=== PATIENT | male | born 2000 | race Caucasian/White ===

== ENCOUNTER 2021-01-04 18:46 | Inpatient (IN) ==
[2021-01-04] MEDS ORDERED: ACETAMINOPHEN 325 MG TAB PO STA (19:09)
[2021-01-04] MEDS ORDERED: IBUPROFEN 600 MG TAB PO STA (19:09)
--- NOTE | 2021-01-04 19:14 | Emergency Department Note ---
History of Present Illness General Chief complaint: Flu Like Symptoms Stated complaint: COUGH, DIARRHEA, FATIGUE, CONGESTION, PISANO,FEVER,SOB Time Seen by Provider: 01/04/21 18:58 Source: patient History of Present Illness Provider complaint: Flulike symptoms Onset (ago): day(s) 9 Location: head and chest Severity: moderate Pain Consistency: + constant Quality: + other (Cough and fever) Relieved By: + none Associated symptoms: + cough, + fever/chills, + headaches (Very mild headache), + malaise, + nausea/vomiting (Nausea no vomiting), + shortness of breath (2 days ago but now resolved) and + other (Lightheadedness when he stands); no chest pain This is a 20-year-old male who presents with flulike symptoms starting 9 days ago. His roommate did test positive for COVID-19. The patient has a nonproductive cough, loss of taste or smell and fever for the past 9 days. His sense of taste seems to be coming back. He stated he was short of breath for about 2 days but today he is no longer short of breath. He denies any chest discomfort. He is nauseated but not vomiting. He has had some diarrhea but that stopped 2 days ago. He denies abdominal pain. He does state that when he gets up he feels lightheaded. He feels dehydrated and feels like his lips are chapped. He has a headache which he describes as "small". He has not had his flu shot this year. He has not taken any antipyretics today. Home Medications Medication Instructions Recorded Confirmed Type acetaminophen 500 mg PO Q6H PRN 01/04/21 01/04/21 History Allergies Allergy/AdvReac Type Severity Reaction Status Date / Time No Known Allergies Allergy Verified 01/04/21 19:39 Past Med/Surg History Medical History No pertinent past medical history Social History Smoking Status: Never smoker Preferred Language: Ukrainian Feels Safe at Home: Yes Review of Systems See HPI for pertinent positives & negatives. and A total of 10 systems reviewed and were otherwise negative Physical Exam Vital Signs Vital Signs - 24 hr 01/04/21 18:54 01/04/21 19:18 01/04/21 19:30 Temperature 39.3 C H Temperature Source Temporal Artery Scan Pulse Rate 120 H 117 H 108 H Pulse Rate from SpO2 Sensor 117 H 110 H Respiratory Rate 20 20 22 Respiratory Depth Normal Blood Pressure 118/63 154/65 H 146/64 H Blood Pressure Mean 81 94 91 Pulse Oximetry 91 90 92 Oxygen Delivery Method Room Air Room Air Room Air Sepsis Recent Fever Within 48 Hours Yes Sepsis New/Unexplained Change in Mental Status N/A Sepsis Action Taken by Nursing No Action Required 01/04/21 20:00 01/04/21 20:05 01/04/21 20:46 Temperature 39.2 C H Temperature Source Oral Pulse Rate 106 H 101 H Pulse Rate from SpO2 Sensor 106 H 101 H Respiratory Rate 14 19 Respiratory Depth Blood Pressure 144/55 H 142/63 H Blood Pressure Mean 84 89 Pulse Oximetry 93 94 Oxygen Delivery Method Room Air Room Air Sepsis Recent Fever Within 48 Hours Sepsis New/Unexplained Change in Mental Status Sepsis Action Taken by Nursing Constitutional: Vital signs reviewed. Febrile. Pale. Eyes: Pupils are equal round reactive to light. Conjunctiva are noninjected. ENT: Pharynx is clear without erythema or exudate. Mucous membranes are moist. Neck supple without meningeal signs. Respiratory: Clear to auscultation bilaterally. Breath sounds are equal bilaterally. Cardiovascular: Tachycardic. Regular rhythm. GI: Soft, nondistended and nontender. Bowel sounds are present. Musculoskeletal: No peripheral edema. No lower extremity tenderness. Integumentary: No cyanosis. or jaundice. Neurological: The patient is awake and alert. No focal deficits. Psychiatric: Normal affect. Not anxious appearing. Course Administered Medications Discontinued Medications Acetaminophen (Acetaminophen 325 Mg Tab) 650 mg PO ONE STA Stop: 01/04/21 19:10 Last Admin: 01/04/21 19:18 Dose: 650 mg Documented by: [id number] Sodium Chloride (Nss 1000ml) 1,000 mls @ 999 mls/hr IV .Q1H1M [place] Stop: 01/04/21 20:15 Last Infusion: 01/04/21 20:24 Dose: 0 mls/hr Documented by: [id number] Admin: 01/04/21 19:18 Dose: 999 mls/hr Documented by: [id number] Piperacillin Sod/Tazobactam Sod (Zosyn) 4.5 gm in 120 mls @ 240 mls/hr IV NOW ONE Stop: 01/04/21 20:38 Last Infusion: 01/04/21 21:22 Dose: 0 mls/hr Documented by: [id number] Admin: 01/04/21 20:44 Dose: 240 mls/hr Documented by: [id number] Ibuprofen (Ibuprofen 600 Mg Tab) 600 mg PO ONE STA Stop: 01/04/21 19:10 Last Admin: 01/04/21 19:18 Dose: 600 mg Documented by: [id number] Critical Care Time Critical Care Time: Yes Total Critical Care Time: 35 I have personally spent approximately 35 minutes of critical care time in the direct management of this patient. This includes bedside care, interpretation of diagnostic studies, and testing, discussion with consultants, patient, and family members, and other required patient management activities. These minutes are in excess of all separately billable procedures. Medical Decision Making Differential Diagnosis COVID-19, pneumonia, bronchitis, influenza, dehydration, electrolyte abnormality Medical Records Attestation: I reviewed the patient's medical records. I did perform a limited focused review of portions of the patient's old chart on the electronic medical record. The patient has had no prior visits to this hospital. Home Medications Current Medication List: was personally reviewed by me Laboratory Data Attestation: I reviewed the patient's lab results. Result diagrams: 01/04/21 19:19 01/04/21 19:19 Lab Results 01/04/21 01/04/21 01/04/21 Range/Units 19:19 19:19 19:19 WBC 3.75 L (4.8-10.8) K/uL RBC 3.29 L (4.7-6.1) M/uL Hgb 10.3 L (14.0-18.0) g/dL Hct 29.6 L (42-52) % MCV 90.0 (80-100) fL MCH 31.3 (25-34) pg MCHC 34.8 (32-36) g/dL RDW Std Deviation 42.0 (36.4-46.3) fL RDW Coeff of Davis 12.8 (11.5-14.5) % Plt Count 99 L (130-400) K/uL Immature Gran % (Auto) 1.6 % Neut % (Auto) 90.4 % Lymph % (Auto) 6.7 % [place] % (Auto) 1.3 % Eos % (Auto) 0.0 % Baso % (Auto) 0.0 % Neut # (Auto) 3.39 (1.4-6.5) K/uL Lymph # (Auto) 0.25 L (1.2-3.4) K/uL [place] # (Auto) 0.05 L (0.11-0.59) K/uL Eos # (Auto) 0.00 (0-0.5) K/uL Baso # (Auto) 0.00 (0-0.2) K/uL Immature Gran # (Auto) 0.06 H (0.00-0.02) K/uL Toxic Vacuolation 1+ Dohle Bodies 1+ Platelet Estimate Decreased L (Normal) Ovalocytes 1+ PT (9.0-12.0) Seconds INR (0.9-1.1) APTT (21.0-31.0) Seconds PTT Ratio Sodium 130 L (136-145) mmol/L Potassium 3.6 (3.5-5.1) mmol/L Chloride 96 L (98-107) mmol/L Carbon Dioxide 28 (21-32) mmol/L Anion Gap 6.0 (3-11) BUN 11 (7-18) mg/dl Creatinine 1.05 (0.6-1.4) mg/dl Est Cr Clr Drug Dosing 122.6 ml/min Est GFR ( Amer) 117.9 Est GFR (Non-Af Amer) 101.7 BUN/Creatinine Ratio 10.3 (10-20) Glucose 118 H (70-99) mg/dl Lactate (0.4-2.0) mmol/L Calcium 8.9 (8.5-10.1) mg/dl Total Bilirubin 1.1 H (0.2-1) mg/dl AST 40 H (15-37) U/L ALT 36 (12-78) U/L Alkaline Phosphatase 63 (45-117) U/L Troponin I (0-0.045) ng/ml C-Reactive Protein (0-0.29) mg/dl Total Protein 6.9 (6.4-8.2) gm/dl Albumin 3.2 L (3.4-5.0) gm/dl Globulin 3.7 (2.5-4.0) gm/dl Albumin/Globulin Ratio 0.9 (0.9-2) Specimen Hemolysis COVID-19 Eval Order SARS-CoV-2 (PCR) Influenza Type A (PCR) (Neg) Influ A Molecular Assay Negative (Negative) Influenza Type B (PCR) (Neg) Influ B Molecular Assay Negative (Negative) RSV (RT-PCR) (Neg) 01/04/21 01/04/21 01/04/21 Range/Units 19:19 19:19 19:19 WBC (4.8-10.8) K/uL RBC (4.7-6.1) M/uL Hgb (14.0-18.0) g/dL Hct (42-52) % MCV (80-100) fL MCH (25-34) pg MCHC (32-36) g/dL RDW Std Deviation (36.4-46.3) fL RDW Coeff of Davis (11.5-14.5) % Plt Count (130-400) K/uL Immature Gran % (Auto) % Neut % (Auto) % Lymph % (Auto) % [place] % (Auto) % Eos % (Auto) % Baso % (Auto) % Neut # (Auto) (1.4-6.5) K/uL Lymph # (Auto) (1.2-3.4) K/uL [place] # (Auto) (0.11-0.59) K/uL Eos # (Auto) (0-0.5) K/uL Baso # (Auto) (0-0.2) K/uL Immature Gran # (Auto) (0.00-0.02) K/uL Toxic Vacuolation Dohle Bodies Platelet Estimate (Normal) Ovalocytes PT (9.0-12.0) Seconds INR (0.9-1.1) APTT (21.0-31.0) Seconds PTT Ratio Sodium (136-145) mmol/L Potassium (3.5-5.1) mmol/L Chloride (98-107) mmol/L Carbon Dioxide (21-32) mmol/L Anion Gap (3-11) BUN (7-18) mg/dl Creatinine (0.6-1.4) mg/dl Est Cr Clr Drug Dosing ml/min Est GFR ( Amer) Est GFR (Non-Af Amer) BUN/Creatinine Ratio (10-20) Glucose (70-99) mg/dl Lactate (0.4-2.0) mmol/L Calcium (8.5-10.1) mg/dl Total Bilirubin (0.2-1) mg/dl AST (15-37) U/L ALT (12-78) U/L Alkaline Phosphatase (45-117) U/L Troponin I (0-0.045) ng/ml C-Reactive Protein (0-0.29) mg/dl Total Protein (6.4-8.2) gm/dl Albumin (3.4-5.0) gm/dl Globulin (2.5-4.0) gm/dl Albumin/Globulin Ratio (0.9-2) Specimen Hemolysis COVID-19 Eval Order [facility]FluRsv at [facility] SARS-CoV-2 (PCR) Cancelled POSITIVE A* Influenza Type A (PCR) Negative (Neg) Influ A Molecular Assay (Negative) Influenza Type B (PCR) Negative (Neg) Influ B Molecular Assay (Negative) RSV (RT-PCR) Negative (Neg) 01/04/21 01/04/21 01/04/21 Range/Units 20:30 20:30 20:30 WBC (4.8-10.8) K/uL RBC (4.7-6.1) M/uL Hgb (14.0-18.0) g/dL Hct (42-52) % MCV (80-100) fL MCH (25-34) pg MCHC (32-36) g/dL RDW Std Deviation (36.4-46.3) fL RDW Coeff of Davis (11.5-14.5) % Plt Count (130-400) K/uL Immature Gran % (Auto) % Neut % (Auto) % Lymph % (Auto) % [place] % (Auto) % Eos % (Auto) % Baso % (Auto) % Neut # (Auto) (1.4-6.5) K/uL Lymph # (Auto) (1.2-3.4) K/uL [place] # (Auto) (0.11-0.59) K/uL Eos # (Auto) (0-0.5) K/uL Baso # (Auto) (0-0.2) K/uL Immature Gran # (Auto) (0.00-0.02) K/uL Toxic Vacuolation Dohle Bodies Platelet Estimate (Normal) Ovalocytes PT 12.4 H (9.0-12.0) Seconds INR 1.2 H (0.9-1.1) APTT 26.6 (21.0-31.0) Seconds PTT Ratio 1.0 Sodium (136-145) mmol/L Potassium (3.5-5.1) mmol/L Chloride (98-107) mmol/L Carbon Dioxide (21-32) mmol/L Anion Gap (3-11) BUN (7-18) mg/dl Creatinine (0.6-1.4) mg/dl Est Cr Clr Drug Dosing ml/min Est GFR ( Amer) Est GFR (Non-Af Amer) BUN/Creatinine Ratio (10-20) Glucose (70-99) mg/dl Lactate 0.9 (0.4-2.0) mmol/L Calcium (8.5-10.1) mg/dl Total Bilirubin (0.2-1) mg/dl AST (15-37) U/L ALT (12-78) U/L Alkaline Phosphatase (45-117) U/L Troponin I < 0.015 (0-0.045) ng/ml C-Reactive Protein 16.80 H (0-0.29) mg/dl Total Protein (6.4-8.2) gm/dl Albumin (3.4-5.0) gm/dl Globulin (2.5-4.0) gm/dl Albumin/Globulin Ratio (0.9-2) Specimen Hemolysis COVID-19 Eval Order SARS-CoV-2 (PCR) Influenza Type A (PCR) (Neg) Influ A Molecular Assay (Negative) Influenza Type B (PCR) (Neg) Influ B Molecular Assay (Negative) RSV (RT-PCR) (Neg) Imaging Data Radiologist's Impression: XR chest 1V portable HISTORY: 20 years-old Male Fever acute cough with fever COMPARISON: None TECHNIQUE: Portable AP view of the chest FINDINGS: Bibasilar predominant airspace opacities. No pneumothorax, pleural effusion or overt pulmonary edema. Cardiomediastinal and hilar silhouettes are within normal limits. No acute fracture. IMPRESSION: Bibasilar predominant airspace opacities suggest multifocal pneumonia. ACT 112: Negative or not required by law. The above report was generated using voice recognition software. It may contain grammatical, syntax or spelling errors. Electronically signed by: Ham Iniguez M.D. 01/04/2021 7:40 PM Dictated: 01/04/211939 Transcribed: 01/04/211939 ECG Data Attestation: I personally reviewed and interpreted this ECG as follows: Indication: + SOB/dyspnea and + tachycardia Rate (beats per minute): 107 Rhythm: + sinus tachycardia ECG ST segments: no ST elevation ECG Findings: + Other (Nonspecific T wave changes); no PVCs MDM Narrative I did evaluate the patient as noted above. The patient is presenting with symptoms consistent with COVID-19. His roommate was diagnosed with COVID-19 and he is presenting with fever, cough, shortness of breath, diarrhea and loss of taste or smell. He came in today because his fever went up to 104 today. He did not take any antipyretics today. I did treat him with ibuprofen and Tyleno l. IV access was established. I did place an order for continuous cardiac monitoring. The monitor showed sinus tachycardia at a rate of 106 bpm. I did order and personally review the patient's 12-lead EKG as described above. He has some nonspecific T wave changes but no ST elevations or signs of pericarditis. I did order and personally reviewed the images of the patient's chest x-ray as described above. He has a multifocal pneumonia consistent with COVID-19. I did order and review the patient's blood work as noted in the electronic medical record. The patient has pancytopenia. His white count is 3.7. Hemoglobin is 10.3 and his platelet count is 99. Electrolytes demonstrate a sodium of 130. Renal function is preserved. I did order blood cultures. I did treat the patient with Zosyn IV. I was concerned about a secondary bacterial infection and possibly early sepsis. He was also given a liter normal saline IV. COVID-19 testing came back positive. Influenza testing is negative. I did discuss the test results with the patient. He was agreeable with hospitalization. I did discuss the case with the hospitalist and upper caser. Impression & Plan Multifocal pneumonia, Pancytopenia, Acute hyponatremia, COVID-19 Discharge Plan Visit Data Chief Complaint: Flu Like Symptoms Stated Complaint: COUGH, DIARRHEA, FATIGUE, CONGESTION, PISANO,FEVER,SOB ED Provider: Jay Beach Discharge Problem: Multifocal pneumonia, Pancytopenia, Acute hyponatremia, COVID-19 Patient Disposition: Being Evaluated by Hospitalist Forms Stand Alone Forms: My [facility] Prescriptions Prescriptions: No Action acetaminophen 500 mg Tablet 500 mg PO Q6H PRN (Reason: Fever Or Pain) RF: 0 Referrals Referrals: PCP,NO [Primary Care Provider] -
[2021-01-04] MEDS ORDERED: SODIUM CHLORIDE 0.9% 1000ML 1,000 ML IV SCH (19:15)
[2021-01-04 19:41] LABS: Mean Corpuscular Hgb Conc 34.8 g/dL (32-36)
--- NOTE | 2021-01-04 19:42 | XRay Report ---
XR chest 1V portable HISTORY: 20 years-old Male Fever acute cough with fever COMPARISON: None TECHNIQUE: Portable AP view of the chest FINDINGS: Bibasilar predominant airspace opacities. No pneumothorax, pleural effusion or overt pulmonary edema. Cardiomediastinal and hilar silhouettes are within normal limits. No acute fracture. IMPRESSION: Bibasilar predominant airspace opacities suggest multifocal pneumonia. ACT 112: Negative or not required by law. The above report was generated using voice recognition software. It may contain grammatical, syntax o r spelling errors. Electronically signed by: Ham Iniguez M.D. 01/04/2021 7:40 PM
[2021-01-04 19:54] LABS: Hematocrit (blood only) 29.6 % (42-52); Hemoglobin 10.3 g/dL (14.0-18.0); Mean Corpuscular Hemoglobin 31.3 pg (25-34); RDW Coefficient of Variation 12.8 % (11.5-14.5); Red Blood Count 3.29 M/uL (4.7-6.1); White Blood Count 3.75 K/uL (4.8-10.8)
[2021-01-04 19:57] LABS: Influenza A virus by PCR Negative (Negative); Influenza B virus by PCR Negative (Negative)
[2021-01-04 19:59] LABS: Platelet Count 99 K/uL (130-400)
[2021-01-04 20:03] LABS: Albumin Level 3.2 gm/dl (3.4-5.0); BUN Creatinine Ratio 10.3 (10-20); Calcium 8.9 mg/dl (8.5-10.1); Creatinine Clr Calc Pharmacy 122.6 ml/min; Est GFR (African American) 117.9; Est GFR (Non-African American) 101.7; Potassium 3.6 mmol/L (3.5-5.1)
[2021-01-04 20:04] LABS: Dohle Bodies 1+; Immature Granulocytes # (auto) 0.06 K/uL (0.00-0.02); Immature Granulocytes % (auto) 1.6 %; Lymphocytes # (auto) 0.25 K/uL (1.2-3.4); Lymphocytes % (auto) 6.7 %; Monocytes # (auto) 0.05 K/uL (0.11-0.59); Monocytes % (auto) 1.3 %; Neutrophils # (auto) 3.39 K/uL (1.4-6.5); Neutrophils % (auto) 90.4 %; Ovalocytes 1+; Platelet Estimate Decreased (Normal); Toxic Vacuolation 1+
[2021-01-04] MEDS ORDERED: PIPERACILLIN/TAZOBACTAM 4.5 GM/120 ML BAG IV ONE (20:09)
[2021-01-04] MEDS ORDERED: PIPERACILL/TAZOBAC CONSULT ACTIVE PRN ×2 (20:09→23:11)
[2021-01-04 20:22] LABS: Albumin Globulin Ratio 0.9 (0.9-2); Bilirubin,Total 1.1 mg/dl (0.2-1); Globulin 3.7 gm/dl (2.5-4.0); Total Protein 6.9 gm/dl (6.4-8.2)
[2021-01-04 21:16] LABS: Troponin I < 0.015 ng/ml (0-0.045)
[2021-01-04 21:21] LABS: Influenza A virus by PCR Negative (Neg); Influenza B virus by PCR Negative (Neg); RSV by PCR Negative (Neg)
[2021-01-04 21:29] LABS: SARS CoV2 RNA(COVID-19) InHosp POSITIVE (Negative)
[2021-01-04 21:32] LABS: INR 1.2 (0.9-1.1); Partial Thromboplastin Time 26.6 Seconds (21.0-31.0); Prothrombin Time 12.4 Seconds (9.0-12.0)
--- NOTE | 2021-01-04 22:27 | History & Physical Report ---
Date of Service January 04, 2021 Assessment & Plan (1) Pneumonia due to COVID-19 virus: Multifocal pneumonia due to COVID-19 virus and secondary bacterial pneumonia with hypoxia- Dexamethasone 10 mg IV now and 6 mg IV every morning Ventolin HFA 2 puffs 4 times daily, and every 2 hours as needed Zinc sulfate 220 mg p.o. every morning Vitamin D 1000 international units p.o. every morning Zosyn 4.5 g IV every 8 hours Azithromycin 500 mg IV every 24 hours Nasal cannula oxygen, titrate to keep pulse ox 95% Present on Admission?: Yes (2) Hypoxia: See above Present on Admission?: Yes (3) Multifocal pneumonia: See above Present on Admission?: Yes (4) Secondary bacterial pneumonia: See above Present on Admission?: Yes (5) Pancytopenia: Follow serial laboratories Present on Admission?: Yes (6) Acute hyponatremia: He did receive 1 L normal saline while in ED. Repeat laboratories in the a.m. Present on Admission?: Yes History of Present Illness Chief Complaint: The patient presents to the emergency department with complaint of within the past 7 days of sore throat, loss of taste and smell, nonproductive cough, fever and chills, headache, generalized malaise, nausea without vomiting and shortness of breath. He was exposed to a roommate at [facility] who was positive for COVID-19. He decided to come in to the ED today due to temperature of 104 degrees that he recorded prior to arrival. Primary Care Provider: NO PCP The patient is a 20-year-old male [employer] [facility] student with with a distant past medical history of syncope, who presents to the emergency department as noted above. Work-up in the emergency department included Laboratories which showed a mild pancytopenia with WBC 3.75, hemoglobin 10.3 and platelets 99. Sodium was 130, glucose 118, total bilirubin 1.1, albumin 3.2, AST 40, C-reactive protein 16.80 and pro calcitonin 1.28. Serologies included negative influenza A and B, and RSV. He was COVID-19 positive. Vital signs revealed a lowest pulse oximetry of 90% on room air, and highest recorded temperature was 102.7. Allergies Allergy/AdvReac Type Severity Reaction Status Date / Time No Known Allergies Allergy Verified 01/04/21 19:39 Home Medications Medication Instructions Recorded Confirmed Type acetaminophen 500 mg PO Q6H PRN 01/04/21 01/04/21 History Past Med/Surg History Medical History No pertinent past medical history Social History Smoking Status: Never smoker Hx Alcohol Use: No Hx Substance Use: No Preferred Language: Martiniquais Communication Ability: Effective Beliefs That Will Affect Care: None Current Living Situation: Alone Feels Safe at Home: Yes Safety Concerns: Feels Safe At This Time Assistive Devices: None Review of Systems Review of Systems: The patient denies chest pain, palpitations, lower extremity swelling, sweats, vomiting, diarrhea , constipation, abdominal pain, pelvic pain, blood in urine or stool, dysuria, urinary frequency or urgency, lightheadedness, dizziness, headache, memory loss, loss of consciousness, rash, abnormal bruising or bleeding, imbalance, focal or generalized weakness, numbness or tingling in arms or legs, and back or neck pain, or night sweats. The review of systems is otherwise negative other than for that already noted above, and at least 10 systems have been reviewed. Physical Exam Physical Exam: The patient is awake, alert and oriented 3, well developed and well nourished, normocephalic and atraumatic, lying in bed and in no acute distress. HEENT--PERRL, EOMI, mucous membranes and oropharynx dry. Neck--supple. No JVD. No bruits. Thyroid normal, trachea midline, no adenopathy. Heart--normal S1 and S2. No murmurs, rubs or gallops. Lungs--clear bilaterally, no respiratory distress, no accessory muscle use. Abdomen--normal bowel sounds and soft. Nontender. Nondistended, no hernias or masses, no organomegaly. Extremities--no cyanosis or clubbing. No edema. There are good distal pulses b/l. Dermatologic--looks pale. Neurologic--cranial nerves II through XII grossly intact. Rheumatologic--normal range of motion. Psychiatric--normal affect. Results & Data Results & Data ([facility]) Vital Signs (Past 12 Hours) Vital Signs Temp Pulse Resp BP Pulse Ox 01/04/21 22:00 81 21 116/60 94 01/04/21 21:30 90 23 119/70 94 01/04/21 21:00 97 H 18 121/80 93 01/04/21 20:46 101 H 19 142/63 H 94 01/04/21 20:05 102.6 F H 01/04/21 20:00 106 H 14 144/55 H 93 01/04/21 19:30 108 H 22 146/64 H 92 01/04/21 19:18 117 H 20 154/65 H 90 01/04/21 18:54 102.7 F H 120 H 20 118/63 91 Laboratory Results Laboratory Results WBC 3.75 K/uL (4.8-10.8) L 01/04/21 19:19 RBC 3.29 M/uL (4.7-6.1) L 01/04/21 19:19 Hgb 10.3 g/dL (14.0-18.0) L 01/04/21 19:19 Hct 29.6 % (42-52) L 01/04/21 19:19 MCV 90.0 fL (80-100) 01/04/21 19:19 MCH 31.3 pg (25-34) 01/04/21 19:19 MCHC 34.8 g/dL (32-36) 01/04/21 19:19 RDW Std Deviation 42.0 fL (36.4-46.3) 01/04/21 19:19 RDW Coeff of Davis 12.8 % (11.5-14.5) 01/04/21 19:19 Plt Count 99 K/uL (130-400) L 01/04/21 19:19 Immature Gran % (Auto) 1.6 % 01/04/21 19:19 Neut % (Auto) 90.4 % 01/04/21 19:19 Lymph % (Auto) 6.7 % 01/04/21 19:19 [place] % (Auto) 1.3 % 01/04/21 19:19 Eos % (Auto) 0.0 % 01/04/21 19:19 Baso % (Auto) 0.0 % 01/04/21 19:19 Neut # (Auto) 3.39 K/uL (1.4-6.5) 01/04/21 19:19 Lymph # (Auto) 0.25 K/uL (1.2-3.4) L 01/04/21 19:19 [place] # (Auto) 0.05 K/uL (0.11-0.59) L 01/04/21 19:19 Eos # (Auto) 0.00 K/uL (0-0.5) 01/04/21 19:19 Baso # (Auto) 0.00 K/uL (0-0.2) 01/04/21 19:19 Immature Gran # (Auto) 0.06 K/uL (0.00-0.02) H 01/04/21 19:19 Toxic Vacuolation 1+ 01/04/21 19:19 Dohle Bodies 1+ 01/04/21 19:19 Platelet Estimate Decreased (Normal) L 01/04/21 19:19 Ovalocytes 1+ 01/04/21 19:19 PT 12.4 Seconds (9.0-12.0) H 01/04/21 20:30 INR 1.2 (0.9-1.1) H 01/04/21 20:30 APTT 26.6 Seconds (21.0-31.0) 01/04/21 20:30 PTT Ratio 1.0 01/04/21 20:30 Sodium 130 mmol/L (136-145) L 01/04/21 19:19 Potassium 3.6 mmol/L (3.5-5.1) 01/04/21 19:19 Chloride 96 mmol/L (98-107) L 01/04/21 19:19 Carbon Dioxide 28 mmol/L (21-32) 01/04/21 19:19 Anion Gap 6.0 (3-11) 01/04/21 19:19 BUN 11 mg/dl (7-18) 01/04/21 19:19 Creatinine 1.05 mg/dl (0.6-1.4) 01/04/21 19:19 Est Cr Clr Drug Dosing 122.6 ml/min 01/04/21 19:19 Est GFR ( Amer) 117.9 01/04/21 19:19 Est GFR (Non-Af Amer) 101.7 01/04/21 19:19 BUN/Creatinine Ratio 10.3 (10-20) 01/04/21 19:19 Glucose 118 mg/dl (70-99) H 01/04/21 19:19 Lactate 0.9 mmol/L (0.4-2.0) 01/04/21 20:30 Calcium 8.9 mg/dl (8.5-10.1) 01/04/21 19:19 Total Bilirubin 1.1 mg/dl (0.2-1) H 01/04/21 19:19 AST 40 U/L (15-37) H 01/04/21 19:19 ALT 36 U/L (12-78) 01/04/21 19:19 Alkaline Phosphatase 63 U/L (45-117) 01/04/21 19:19 Lactate Dehydrogenase 236 U/L (87-241) 01/04/21 20:30 Troponin I < 0.015 ng/ml (0-0.045) 01/04/21 20:30 C-Reactive Protein 16.80 mg/dl (0-0.29) H 01/04/21 20:30 Total Protein 6.9 gm/dl (6.4-8.2) 01/04/21 19:19 Albumin 3.2 gm/dl (3.4-5.0) L 01/04/21 19:19 Globulin 3.7 gm/dl (2.5-4.0) 01/04/21 19:19 Albumin/Globulin Ratio 0.9 (0.9-2) 01/04/21 19:19 Procalcitonin 1.28 ng/ml (0-0.5) H 01/04/21 20:30 Specimen Hemolysis 01/04/21 19:19 COVID-19 Eval Order [facility]FluRsv at [facility] 01/04/21 19:19 SARS-CoV-2 (PCR) Cancelled 01/04/21 19:19 SARS-CoV-2 (PCR) POSITIVE (Negative) A* 01/04/21 19:19 Influenza Type A (PCR) Negative (Neg) 01/04/21 19:19 Influ A Molecular Assay Negative (Negative) 01/04/21 19:19 Influenza Type B (PCR) Negative (Neg) 01/04/21 19:19 Influ B Molecular Assay Negative (Negative) 01/04/21 19:19 RSV (RT-PCR) Negative (Neg) 01/04/21 19:19 Diagnostic Findings [facility], [id number] XRay Report Patient: RENE BLACKBURNAdmit Date: 01/04/21#: [id number]: Acct ID:[id number]: [facility] Age[facility] 20Location: EDSex: MRoom/Bed:Att Phy:Diagnosis: COUGH, DIARRHEA, FATIGUE, CONGESTION, PISANO,FEVER,SOBPri Phy: PCP,NOService Date: 01/04/21Fam Phy:Interpreting Phy: Shaun IniguezAdmit Phy: Ordering Phy: Jay Beach MD cc: ~ XR chest 1V portable HISTORY: 20 years-old Male Fever acute cough with fever COMPARISON: None TECHNIQUE: Portable AP view of the chest FINDINGS: Bibasilar predominant airspace opacities. No pneumothorax, pleural effusion or overt pulmonary edema. Cardiomediastinal and hilar silhouettes are within normal limits. No acute fracture. IMPRESSION: Bibasilar predominant airspace opacities suggest multifocal pneumonia. ACT 112: Negative or not required by law. The above report was generated using voice recognition software. It may contain grammatical, syntax or spelling errors. Electronically signed by: Ham Iniguez M.D. 01/04/2021 7:40 PM Dictated: 01/04/211939Transcribed: 01/04/211939 Code Status & VTE Plan Code Status Full code VTE Prophylaxis Plan VTE Prophylaxis will be ordered: Yes PG Care Time/CCT Total # of Minutes Spent Total Time Spent with Patient: Total time spent is greater than 50% in coordination of care (as documented) at patient's floor/unit and/or counseling patient: Coding Level of Care Code 15793 Initial Inpt Care Lvl 3 Diagnoses Pneumonia due to COVID-19 virus U07.1; J12.82 Hypoxia R09.02 Multifocal pneumonia J18.9 Secondary bacterial pneumonia J15.9 Pancytopenia D61.818 Acute hyponatremia E87.1
[2021-01-04] MEDS ORDERED: DEXAMETHASONE SOD INJ 10 MG/ML VIAL IV ONE (23:11)
[2021-01-04] MEDS ORDERED: ACETAMINOPHEN 325 MG TAB PO PRN (23:11)
[2021-01-04] MEDS ORDERED: ONDANSETRON INJ 2 MG/ML 2 ML VIAL IV PRN (23:11)
[2021-01-04] MEDS ORDERED: dexAMETHasone 10 MG in SYRINGE 0 ML IV ONE (23:30)
[2021-01-05] MEDS ORDERED: AZITHROMYCIN 500 MG in DEXTROSE 5% 250 ML IV SCH
[2021-01-05] MEDS: ENOXAPARIN INJ 40 MG/0.4 ML SYR SQ SCH ×2 (01:00→11:49)
[2021-01-05] MEDS: PIPERACILLIN/TAZOBACTAM 3.375 GM in DEXTROSE 5% 100 ML IV SCH ×2 (03:16→10:13)
[2021-01-05 06:48] LABS: Hematocrit (blood only) 32.7 % (42-52); Hemoglobin 11.2 g/dL (14.0-18.0); Mean Corpuscular Hemoglobin 31.2 pg (25-34); Mean Corpuscular Hgb Conc 34.3 g/dL (32-36); Mean Corpuscular Volume 91.1 fL (80-100); RDW Coefficient of Variation 12.9 % (11.5-14.5); RDW Standard Deviation 43.2 fL (36.4-46.3); Red Blood Count 3.59 M/uL (4.7-6.1); White Blood Count 3.84 K/uL (4.8-10.8)
[2021-01-05 06:52] LABS: Mean Platelet Volume 9.2 fL (7.4-10.4); Platelet Count 95 K/uL (130-400)
[2021-01-05 06:59] LABS: INR 1.2 (0.9-1.1); Partial Thromboplastin Time 26.7 Seconds (21.0-31.0); Prothrombin Time 11.9 Seconds (9.0-12.0)
[2021-01-05] MEDS ORDERED: ALBUTEROL HFA 8 GM INHALER INH SCH (07:00)
[2021-01-05 07:26] LABS: Dohle Bodies 1+; Lymphocytes # (auto) 0.21 K/uL (1.2-3.4); Lymphocytes % (auto) 5.5 %; Monocytes # (auto) 0.01 K/uL (0.11-0.59); Monocytes % (auto) 0.3 %; Neutrophils # (auto) 3.62 K/uL (1.4-6.5); Neutrophils % (auto) 94.2 %; Ovalocytes 1+
[2021-01-05 07:38] LABS: Albumin Globulin Ratio 0.7 (0.9-2); BUN Creatinine Ratio 11.7 (10-20); Calcium 9.2 mg/dl (8.5-10.1); Creatinine Clr Calc Pharmacy 148.2 ml/min; Est GFR (Non-African American) 124.2; Globulin 4.1 gm/dl (2.5-4.0); Magnesium 2.7 mg/dl (1.8-2.4); Potassium 4.2 mmol/L (3.5-5.1); Total Protein 7.1 gm/dl (6.4-8.2)
--- NOTE | 2021-01-05 08:20 | Electrocardiogram Report ---
Test Reason : Blood Pressure : / mmHG Vent. Rate : 107 BPM Atrial Rate : 107 BPM P-R Int : 130 ms QRS Dur : 084 ms QT Int : 316 ms P-R-T Axes : 068 027 037 degrees QTc Int : 421 ms Sinus tachycardia Nonspecific T wave abnormality Abnormal ECG No previous ECGs available Confirmed by Brayden Acosta ([id number]) on 01/05/2021 8:19:54 AM Referred By: REFERRED SELF Confirmed By:Craig Acosta
[2021-01-05] MEDS ORDERED: ZINC SULFATE 220 MG CAPSULE PO SCH (09:00)
[2021-01-05] MEDS ORDERED: dexAMETHasone 6 MG in SYRINGE 0 ML IV SCH (09:00)
[2021-01-05] MEDS ORDERED: CHOLECALCIFEROL 1,000 UNITS 25 MCG TAB PO SCH (09:00)
[2021-01-05] MEDS ORDERED: ALBUTEROL HFA 8 GM INHALER INH PRN (10:39)
[2021-01-05] MEDS ORDERED: cefTRIAXone SODIUM 2,000 MG in DEXTROSE 5% 50 ML IV SCH (12:00)
--- NOTE | 2021-01-05 15:41 | Discharge Summary ---
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 Work-up in the emergency department included Laboratories which showed a mild pancytopenia with WBC 3.75, hemoglobin 10.3 and platelets 99. Sodium was 130, glucose 118, total bilirubin 1.1, albumin 3.2, AST 40, C-reactive protein 16.80 and pro calcitonin 1.28. Serologies included negative influenza A and B, and RSV. He was COVID-19 positive. Vital signs revealed a lowest pulse oximetry of 90% on room air, and highest recorded temperature was 102.7. Principal Diagnosis Pt states he feels much improved. He is not SOB at rest. He feels a bit tight with moving around to the bathroom, but better than prior. No issues with PO intake. Pt denies fever, chest pain, abd pain, n/v/c/d, LE pain or swelling. Discharge Exam Constitutional WD/WN, vitals as above Eyes normal visual lobo by confrontation and + anicteric sclerae Neck normal visual inspection and trachea midline Respiratory normal respiratory effort; no respiratory distress Auscultation: + crackles; no wheezes Cardiovascular Rate/Rhythm: regular rate and regular rhythm Gastrointestinal (Abdomen) Inspection/Auscultation: abdomen not distended Percussion/Palpation: abdomen soft; abdomen nontender Musculoskeletal Head/Neck/Chest: normocephalic and head atraumatic Skin no rashes, warm and dry Neurologic awake; not confused Speech / Cognition: normal speech Psychiatric A+Ox3, euthymic affect Discharge Data Allergies Allergy/AdvReac Type Severity Reaction Status Date / Time No Known Allergies Allergy Verified 01/04/21 19:39 Consultations 01/04/21 20:19 ED Decision to Admit Stat Hospital Course (1) Pneumonia due to COVID-19 virus: Multifocal pneumonia due to COVID-19 virus and secondary bacterial pneumonia with hypoxia on admission Has been in the high 90s on RA Dexamethasone started in the ED, will finish 7 days total tx Zinc sulfate 220 mg QD for the next few weeks Vitamin D 1000 international units QD for the next few weeks Zosyn 4.5 g IV every 8 hours and Azithromycin 500 mg IV QD started on admission, will finish course of keflex and azithromycin Flu neg Blood cx pending on d/c (2) Hypoxia: See above (3) Multifocal pneumonia: See above (4) Secondary bacterial pneumonia: See above (5) Pancytopenia: Slight improvement overnight Recheck CBC in 2 weeks with [facility] Likely related to acute illness (6) Acute hyponatremia: He did receive 1 L normal saline while in ED. Repeat WNL Total Time Total Time Spent Total Time Spent (In Minutes): >30 Total Time Includes: Examination of the Patient, Discharge Planning, Medication Reconciliation, Communication With Other Providers and Other Discharge Plan Discharge Items Patient Disposition: Home - Self-Care Reason For Visit: COVID-19 PNEUMONIA PRESUMP WITH HYPOXIA Discharge Diagnosis: COVID 19 with multifocal bacterial PNA Activity: Resume your previous activity Non-emergency contact: Primary Care Provider Call non-emergency contact if: you have any medication questions and your symptoms worsen Follow-up/Referrals: PCP,NO [Primary Care Provider] - Diet: Regular Addtl Attending Provider Instructions: You should follow up with [facility] in 2 weeks. They should check your blood counts at that time. Pending Studies at Discharge: Yes Studies:: Blood cultures Stand-Alone Forms: My [facility] [employer], Smoking Cessation Medications and DC Order Prescriptions: New cholecalciferol (vitamin D3) 25 mcg (1,000 unit) Capsule 1,000 unit PO QAM Qty: 30 RF: 0 zinc sulfate [Orazinc] 220 (50) mg Capsule 220 mg PO QAM Qty: 30 RF: 0 azithromycin 250 mg tablet 250 mg PO DAILY 4 Days Qty: 4 RF: 0 cephalexin [Keflex] 750 mg capsule 750 mg PO BID 10 Days Qty: 20 RF: 0 dexamethasone 6 mg tablet 6 mg PO DAILY Qty: 7 RF: 0 Continued acetaminophen 500 mg Tablet 500 mg PO Q6H PRN (Reason: Fever Or Pain) RF: 0 Discharge Orders: Discharge Order (Routine); Ordered 01/05/21 Ordered By: Adriana Archer/Other Patient Handouts: COVID-19 Home Care, Disinfecting Your Home of COVID-19 Admission Data Admit Date/Time: 01/04/21 21:29 Attending Provider: Adriana Hamilton Admit Provider: Joseph Black Primary Care Provider: PCP,NO Other Providers: Joseph Black Other Interventions: Discharge Summary Assessment (RN) Last Done: 01/05/21 15:42 Coding Level of Care Code D/C Day Management >30 mins Diagnoses Pneumonia due to COVID-19 virus U07.1; J12.82 Hypoxia R09.02 Multifocal pneumonia J18.9 Secondary bacterial pneumonia J15.9 Pancytopenia D61.818 Acute hyponatremia E87.1
== END 2021-01-05 16:29 | disposition home or self-care (01) | DRG 177 ==
LOC: ED 18:46 → 2W 21:29 → SUATTDRO 21:29 → 2W 22:50